=== PATIENT | male | born 1960 | race Caucasian/White ===

== ENCOUNTER 2018-11-28 16:52 | Inpatient (IN) | payer BC ==
[~2018-11-28] VITALS: Ht 185.4 cm; Wt 99.8 kg
--- NOTE | 2018-11-28 17:00 | NUR ---
PT BIB SELF C/O LEFT FACE AND ARM NUMBNESS, LAST WELL KNOWN 1630. PT "HAVE A WEIRD FEELING THEN SUDDEN NUMBNESS ON THE LEFT ARM AROUND 4PM" PT IS AAOX4, NOT IN RESPIRATORY DISTRESS, V/S STABLE, HOOKED TO MONITOR, KEPT RESTED AND COMFORTABLE, WILL CONTINUE TO MONITOR.
--- NOTE | 2018-11-28 17:00 | NUR ---
SEEN AND EXAMINED BY DR. YEBOAH.
--- NOTE | 2018-11-28 17:03 | NUR ---
CODE STROKE CALLED
--- NOTE | 2018-11-28 17:05 | NUR ---
IV LINE ESTABLISHED. LABS DRAWNED AND SENT TO LAB.
--- NOTE | 2018-11-28 17:06 | NUR ---
EKG DONE STROKE TEAM AT BEDSIDE.
--- NOTE | 2018-11-28 17:08 | NUR ---
PT WHEELED TO CT SCAN VIA ACLS PROTOCOL.
[2018-11-28 17:15] LABS: BASOPHILS # (AUTO) 0.1 /CMM (0.0-0.2); BASOPHILS % (AUTO) 0.8 % (0.0-2.0); EOSINOPHILS % (AUTO) 4.9 % (0.0-6.0); HEMATOCRIT 46 % (39-51); HEMOGLOBIN 15.6 g/dL (13.5-17.5); LYMPHOCYTES # (AUTO) 2.2 /CMM (0.8-4.8); LYMPHOCYTES % (AUTO) 17.8 % (20.0-44.0); MEAN CORPUSCULAR HGB CONC 34 g/dl (31.0-36.0); MEAN CORPUSCULAR VOLUME 90 fL (80-96); MONOCYTES # (AUTO) 0.8 /CMM (0.1-1.30); MONOCYTES % (AUTO) 6.7 % (2.0-12.0); NEUTROPHILS # (AUTO) 8.6 /CMM (1.8-8.9); NEUTROPHILS % (AUTO) 69.8 % (43.0-81.0); PLATELET COUNT (AUTO) 323 /CMM (150-450); RED BLOOD CELL COUNT(AUTO) 5.15 MIL/uL (4.5-6.0); WHITE BLOOD COUNT (AUTO) 12.3 K/uL (4.3-11.0)
--- NOTE | 2018-11-28 17:15 | NUR ---
CALLED TELESTROKE, SPOKE WITH SRINIVAS, PRESENTED PT, AWAITING CALL BACK FROM
--- NOTE | 2018-11-28 17:18 | NUR ---
PT IS BACK FROM THE CT SCAN.
--- NOTE | 2018-11-28 17:22 | NUR ---
URINE SPECIMEN COLLECTED AND SENT TO LAB.
[2018-11-28] MEDS ORDERED: IOHEXOL-350 100 ML VIAL IV ONE (17:32)
[2018-11-28] MEDS ORDERED: CT SWABBABLE VALVE TRANS SET 1 EA INFUS.SET MC ONE (17:32)
[2018-11-28] MEDS ORDERED: IV NS 0.9% 250 ML IV ONE (17:32)
--- NOTE | 2018-11-28 17:32 | NUR ---
PT IS WHEELED BACK TO CT SCAN FOR CTA.
[2018-11-28 17:38] LABS: CALCIUM, SERUM 9.7 mg/dL (8.5-10.1); CARBON DIOXIDE 28 mmol/L (21-32); CHLORIDE 103 mmol/L (98-107); CREATININE 0.9 mg/dL (0.6-1.3); GLUCOSE 119 mg/dL (74-106); SODIUM SERUM 137 mmol/L (136-145); UREA NITROGEN, BLOOD 20 mg/dL (7-18)
[2018-11-28 17:39] LABS: CHOLESTEROL 137 mg/dL (<200); HDL CHOLESTEROL 38 mg/dL (40-60); LDL 82 mg/dL (0-99); TRIGLYCERIDES 107 mg/dL (30-150)
--- NOTE | 2018-11-28 18:42 | NUR ---
CALLED NURSING SUP. FOR TELE BED
--- NOTE | 2018-11-28 19:04 | NUR ---
CARINA SMITH, NADIYA MARY NP ASSOCIATE DENTIST
--- NOTE | 2018-11-28 19:10 | NUR ---
REPORT GIVEN TO SHALOM ELLIOTT FOR LAUREL.
[2018-11-28] MEDS ORDERED: CARV3.12 PO (19:21)
[2018-11-28] MEDS ORDERED: ASPI-1169 PO (19:21)
[2018-11-28] MEDS ORDERED: LISI5TAB45 PO (19:21)
[2018-11-28] MEDS ORDERED: ATOR40TA PO (19:21)
[2018-11-28] MEDS ORDERED: ASPIRIN 81 MG TAB.CHEW ONE (19:27)
--- NOTE | 2018-11-28 19:29 | NUR ---
PT MEDICATED ORDERED.
[2018-11-28] MEDS ORDERED: ASPIRIN 81 MG TAB.CHEW PO ONE (19:30)
--- NOTE | 2018-11-28 19:38 | NUR ---
FAMILY IS AT THE BEDSIDE. PT APPEARS TO BE RESTING COMFORTABLY WITH NO S/S OF PAIN OR DISTRESS.
--- NOTE | 2018-11-28 20:06 | NUR ---
PT IS GOING TO 115-1, TELE. ADMITTED BY Robinson MARY SPORTS ADMINISTRATOR
--- NOTE | 2018-11-28 20:30 | NUR ---
CALLING REPORT TO SHALOM GRANDE - TELE NURSE.
--- NOTE | 2018-11-28 20:36 | NUR ---
PT TRANSPORTED TO TELE VIA GURNEY.
--- NOTE | 2018-11-28 20:50 | NUR ---
RN NOTES RECEIVED PATIENT'S REPORT FROM EARL ALMONTE RN AND RECEIVED PATIENT ON [place] [place]. PATIENT IS A/A/OX4. NO COMPLAINT OF SON, NO CHEST PAIN AT THIS TIME. PATIENT IS PLACED ON LAUNCH MANAGER WITH SR. PATIENT IS ON RA WITH SPO2 OF 98% WITH NON- LABORED BREATHING. SKIN ASSESSMENT HAS BEEN DONE AND PICTURES ARE TAKEN AND PLACED IN THE CHART. PATIENT IS AMBULATORY AND BRP. IV LINE ON RIGHT AC 18G IS PATIENT AND INTACT W/O IV FLUIDS. NIHSS ASSESSMENT HAS BEEN DONE. WILL CONTINUE TO MONITOR PATIENT CLOSELY.
[2018-11-28] MEDS ORDERED: HYDROCODONE/APAP 5/325MG 1 EACH TABLET PO PRN (21:00)
[2018-11-28] MEDS ORDERED: ONDANSETRON HCL/PF 4 MG/2 ML VIAL IVP PRN (21:00)
[2018-11-28] MEDS ORDERED: MAGNESIUM HYDROXIDE 30 ML UDC PO PRN (21:00)
[2018-11-28] MEDS ORDERED: ACETAMINOPHEN 325 MG TABLET PO PRN (21:00)
[2018-11-28] MEDS ORDERED: ZOLPIDEM TARTRATE 5 MG TABLET PO PRN (21:00)
[2018-11-28 21:14] LABS: POTASSIUM 3.8 mmol/L (3.5-5.1)
[2018-11-28 21:26] LABS: ALBUMIN 4.1 g/dL (3.4-5.0); BILIRUBIN,TOTAL 0.5 mg/dL (0.2-1.0); TOTAL PROTEIN, SERUM 7.2 g/dL (6.4-8.2)
[2018-11-28 21:29] LABS: THYROID STIMULATING HORMONE 1.613 uIU/mL (0.358-3.74)
[2018-11-28 21:52] VITALS: BP_SYST 118; BP_SYST 151; BP_DIAS 71; BP_DIAS 88
[2018-11-28] MEDS ORDERED: ATORVASTATIN 10 MG TABLET PO SCH (22:00)
[2018-11-29] VITALS: BP 110/61
[2018-11-29] MEDS: BLOOD SUGAR DIAGNOSTIC 1 EACH STRIP IN SCH ×4 (01:07→18:05)
[2018-11-29 04:00] VITALS: BP 98/64
[2018-11-29 06:54] LABS: BASOPHILS # (AUTO) 0.1 /CMM (0.0-0.2); EOSINOPHILS % (AUTO) 5.5 % (0.0-6.0); HEMATOCRIT 43 % (39-51); HEMOGLOBIN 14.7 g/dL (13.5-17.5); LYMPHOCYTES % (AUTO) 20.9 % (20.0-44.0); MEAN CORPUSCULAR HGB CONC 34 g/dl (31.0-36.0); MEAN CORPUSCULAR VOLUME 90 fL (80-96); MONOCYTES # (AUTO) 0.8 /CMM (0.1-1.30); MONOCYTES % (AUTO) 7.9 % (2.0-12.0); NEUTROPHILS # (AUTO) 6.2 /CMM (1.8-8.9); NEUTROPHILS % (AUTO) 64.7 % (43.0-81.0); PLATELET COUNT (AUTO) 262 /CMM (150-450); RED BLOOD CELL COUNT(AUTO) 4.79 MIL/uL (4.5-6.0); WHITE BLOOD COUNT (AUTO) 9.6 K/uL (4.3-11.0)
--- NOTE | 2018-11-29 07:00 | NUR ---
ANIMAL BREEDER OPENING NOTES RECEIVED PT LYING ON BED.ALERT/ORIENTED X4.ON TELE HR IS 74 WITH SR.ON ROOM AIR,TOLERATING WELL.NO SOB AND ACUTE DISTRESS NOTED.IV LINE IS ON RIGHT AC G18,SITE IS CLEAN,DRY AND INTACT.NO INFILTRATION NOTED.SAFETY IS MAINTAINED AT ALL TIMES.BED IS IN LOW POSITION AND LOCKED.CALL LIGHT IS WITHIN REACH.WILL CONTINUE TO MONITOR THE PT CLOSELY AND WILL FOLLOW UP THE MRI PROCEDURE.
[2018-11-29 07:01] LABS: CALCIUM, SERUM 8.7 mg/dL (8.5-10.1); CREATININE 0.9 mg/dL (0.6-1.3); MAGNESIUM 1.9 mg/dL (1.8-2.4); PHOSPHORUS 4.2 mg/dL (2.5-4.9); POTASSIUM 3.8 mmol/L (3.5-5.1)
[2018-11-29 07:38] LABS: APPEARANCE,URINE CLEAR (CLEAR); BILIRUBIN,URINE NEGATIVE (NEGATIVE); BLOOD, URINE TRACE Ery/uL (NEGATIVE); COLOR,URINE YELLOW (YELLOW); KETONES,URINE NEGATIVE (NEGATIVE); LEUKOCYTE ESTERASE ,URINE NEGATIVE (NEGATIVE); NITRITE, URINE NEGATIVE (NEGATIVE); PH,URINE 6.5 (5.0-8.0); PROTEIN,URINE NEGATIVE (NEGATIVE); UGLUCOSE NEGATIVE (NEGATIVE); UROBILINOGEN,URINE 0.2 EU/dL (0.2)
[2018-11-29 07:49] LABS: SQUAMOUS EPITHELIAL CELL,UR Rare /HPF (None Seen)
[2018-11-29 07:50] LABS: BACTERIA,URINE None seen /HPF (None Seen); RBC,URINE 0-2 /HPF (0-2); WBC,URINE 0-2 /HPF (0-3)
[2018-11-29 08:00] VITALS: BP 116/71
[2018-11-29] MEDS: CARVEDILOL 3.125 MG TABLET PO SCH (08:30)
[2018-11-29] MEDS: ASPIRIN 81 MG TAB.CHEW PO SCH (08:30)
--- NOTE | 2018-11-29 11:27 | NUR ---
TEXTED DR. SESAY FOR MRI APPROVAL.
--- NOTE | 2018-11-29 11:31 | NUR ---
MRI ON HOLD FOR NOW, DR. SESAY WILL LET US KNOW.
--- NOTE | 2018-11-29 11:45 | NUR ---
MAIL SORTER NOTES CREW CHIEF AYALA PHILLIP SAID ITS OK TO HAVE MRI WITH SURGICAL CLIP ON THE CHEST AFTER VERIFIED WITH ,BROOM BUILDER.ELISA MRI MADE AWARE AND PER HIM ORDERED TO HOLD PT FOR A WHILE FOR MRI AND WILL LET THE STAFF KNOW WHEN THE PROCEDURE WILL TAKES PLACE.
[2018-11-29 12:00] VITALS: BP 116/79
[2018-11-29 16:00] VITALS: BP 113/77
--- NOTE | 2018-11-29 19:00 | NUR ---
SHUTTLE FILLER CLOSING NOTES PT IS LYING ON BED.NO S/S STROKE NOTED.NO SIGNIFICANT CHANGES NOTED IN THE SHIFT.ENDORSED TO COLUMNIST RN FOR LAUREL AND FOLLOW UP WITH MRI IN AM.
[2018-11-29 20:00] VITALS: BP 123/71
[2018-11-29] MEDS: ATORVASTATIN 10 MG TABLET PO SCH (21:04)
[2018-11-29] MEDS: LISINOPRIL (5MG) 5 MG TABLET PO SCH (21:05)
[2018-11-30] VITALS (8 sets, daily range): BP systolic 93–124; BP diastolic 59–79
[2018-11-30] MEDS: BLOOD SUGAR DIAGNOSTIC 1 EACH STRIP IN SCH ×4 (01:00→17:04)
--- NOTE | 2018-11-30 06:55 | NUR ---
SCHOOL OCCUPATIONAL THERAPIST CLOSING NOTES, PT IS LYING ON BED, SLEEPING AT THIS TIME BUT EASILY AROUSABLE TO VERBAL STIMULI, NO SIGNIFICANT CHANGE IN CONDITION THROUGHOUT THE NIGHT, WILL ENDORSE CONTINUITY OF CARE TO ONCOMING NURSE, HE WILL HAVE MRI THIS AM, PATIENT AWARE AND VERBALIZED UNDERSTANDING.
--- NOTE | 2018-11-30 07:28 | NUR ---
MS/RN Patient received Patient received from film processing shift supervisor. A/O X4, NSR on monitor, denies any pain or discomfort at this time. Safety measures in place, call light within reach, will continue to monitor and ensure safety.
[2018-11-30] MEDS: ASPIRIN 81 MG TAB.CHEW PO SCH (08:18)
[2018-11-30] MEDS: CARVEDILOL 3.125 MG TABLET PO SCH (08:19)
--- NOTE | 2018-11-30 10:30 | NUR ---
MS/RN S/B Kurt Betts REINSURANCE ANALYST Seen by REINSURANCE ANALYST - await MRI.
--- NOTE | 2018-11-30 11:11 | NUR ---
MS/RN S/B Dr Bradford Seen by Dr rBadford - discharge per IM.
--- NOTE | 2018-11-30 11:47 | NUR ---
MS/RN MRI follow up Call placed to MRI to follow up on schedule time, per windows server support technician, MRI on hold at this time until approval given by Dr Rahman.
--- NOTE | 2018-11-30 13:07 | NUR ---
MS/RN S/B Neurology Seen by neuro DIAMOND ASSORTER, informed as to the status of MRI. Stated that she would follow up with Dr Yepez regarding any different testing that could be ordered instead of the MRI.
--- NOTE | 2018-11-30 17:05 | NUR ---
MS/RN Blood sugars Patient refusing for blood sugars to be checked, stating "I'm not diabetic", MD aware.
--- NOTE | 2018-11-30 18:13 | NUR ---
MS/RN End note Patient remains in stable condition, no new needs at this time. Continues to await for MRI, stating that if this is not done by tomorrow morning, patient wishes to be discharged to home aas nothing is being done here in the hospital. Will endorse to tension machine operator.
--- NOTE | 2018-11-30 19:50 | NUR ---
RN MS NOTES, PATIENT LYING ON BED, AWAKE A/O X4, BREATHING EVEN AND UNLABORED, NO SOB/ACUTE DISTRESS NOTED AT THIS TIME, DENIES PAIN OR DISCOMFORT, RIGHT AC IV ACEES PATENT AND INTACT, ALL NEEDS PROVIDED, CALL LIGHT W/I REACH, WILL CONTINUE TO MONITOR CLOSELY.
[2018-11-30] MEDS: ALPRAZOLAM 1 MG TABLET PO PRN (21:24)
[2018-11-30] MEDS: ATORVASTATIN 10 MG TABLET PO SCH (23:35)
[2018-11-30] MEDS: LISINOPRIL (5MG) 5 MG TABLET PO SCH (23:36)
[2018-12-01] MEDS: BLOOD SUGAR DIAGNOSTIC 1 EACH STRIP IN SCH ×4 (00:26→17:59)
[2018-12-01 04:00] VITALS: BP 94/62
--- NOTE | 2018-12-01 06:55 | NUR ---
PROJECT CONSTRUCTION ASSISTANT MANAGER CLOSING NOTES, PT IS ON BED AWAKE, A/O X4, BREATHING EVEN AND UNLABORED, NO SOB/ACUTE DISTRESS NOTES, ONE EPISODE OF ANXIETY DURING THE NIGHT AND XANAX ADMINISTERED ORDERED, ALL NEEDS PROVIDED STILL WAITING FOR MRI, BUT STATES HE WANTS TO GO HOME TODAY EVEN AND MRI IS NOT DONE, WILL ENDORSE CONTINUITY OF CARE TO ONCOMING NURSE.
--- NOTE | 2018-12-01 07:40 | NUR ---
MS/RN OPENING NOTE PATIENT IN BED IN STABLE CONDITION. A/O X 4. NO SIGNS OF ACUTE DISTRESS. NO COMPLAIN OF PAIN OR DISCOMFORT. ALL NEEDS ATTENDED TO. CALL LIGHT WITHIN REACH. WILL CONTINUE TO MONITOR TO ENSURE SAFETY.
[2018-12-01 08:00] VITALS: BP 116/74
[2018-12-01] MEDS: ASPIRIN 81 MG TAB.CHEW PO SCH (08:11)
[2018-12-01] MEDS: CARVEDILOL 3.125 MG TABLET PO SCH (08:12)
[2018-12-01 08:16] VITALS: BP 116/74
--- NOTE | 2018-12-01 09:30 | NUR ---
MS/RN SPOKE WITH MAGNO FROM RADIOLOGY REGARDING PATIENT'S MRI STATUS AND MADE AWARE THE ORDER IS FROM 11/28/18 PER MAGNO HE IS STILL AWAITING FOR DR SESAY'S APPROVAL. GEOVANI GUZMAN FOR NEURO DR. RICHARDSON NOTIFIED.
--- NOTE | 2018-12-01 11:32 | NUR ---
MS/RN SPOKE WITH GEOVANI GUZMAN AND NOTIFIED PER LAND SURVEYING MANAGER IF OKAY TO DO BILATERAL EYE ORBIT XRAY SECONDARY TO PATIENT WORKS WITH METAL MACHINERY. PER GEOVANI GUZMAN OKAY FOR BILATERAL ORBIT XRAY. ORDERS NOTED AND CARRIED OUT. PATIENT NOTIFIED.
[2018-12-01 16:00] VITALS: BP 107/66
--- NOTE | 2018-12-01 18:27 | NUR ---
MS/RN CLOSING NOTES PATIENT IN BED IN STABLE CONDITION. A/O X 4. NO SIGNS OF ACUTE DISTRESS. NO COMPLAIN OF PAIN OR DISCOMFORT. PENDING EEG RESULTS. ALL NEEDS ATTENDED TO. CALL LIGHT WITHIN REACH. WILL ENDORSE TO NEXT SHIFT FOR CONTINUITY OF CARE.
--- NOTE | 2018-12-01 19:40 | NUR ---
MANAGER VALIDATION INITIAL NOTES, PATIENT IS ON BED AWAKE, A/O X4, BREATHING EVEN AND UNLABORED, NO SOB/ACUTE DISTRESS NOTED AT THIS TIME, RIGHT AC IV ACCESS PATENT AND INTACT, ALL NEEDS PROVIDED, CALL LIGHT W/I REACH, WILL CONTINUE TO MONITOR CLOSELY.
[2018-12-01 20:00] VITALS: BP 120/77
[2018-12-01] MEDS: ATORVASTATIN 10 MG TABLET PO SCH (21:03)
[2018-12-01] MEDS: LISINOPRIL (5MG) 5 MG TABLET PO SCH (21:04)
[2018-12-01] MEDS: ALPRAZOLAM 1 MG TABLET PO PRN (22:13)
[2018-12-02 04:00] VITALS: BP_SYST 104; BP_DIAS 70; BP_DIAS 90
[2018-12-02] MEDS: BLOOD SUGAR DIAGNOSTIC 1 EACH STRIP IN SCH ×2 (06:00)
--- NOTE | 2018-12-02 06:50 | NUR ---
RN CLOSING NOTES, PATIENT SLEEPING AT THIS TIME, BREATHING EVEN AND UNLABORED, NO SOB/ACUTE DISTRESS NOTED AT THIS TIME, ALL NEEDS PROVIDED REFUSED 0000 AND 0600 BLOOD SUGAR CHECK, STATED THAT HES NOT DIABETIC AND DOES NOT WANT BLOOD SUGAR CHECK, EXPLAINED RISKS AND BENEFITS 3X, STILL REFUSED, CALL LIGHT W/I REACH, WILL ENDORSE CONTINUITY OF CARE TO ONCOMING NURSE.
[2018-12-02 07:28] LABS: BASOPHILS # (AUTO) 0.1 /CMM (0.0-0.2); BASOPHILS % (AUTO) 0.9 % (0.0-2.0); EOSINOPHILS % (AUTO) 5.3 % (0.0-6.0); HEMATOCRIT 45 % (39-51); HEMOGLOBIN 15.5 g/dL (13.5-17.5); LYMPHOCYTES # (AUTO) 1.8 /CMM (0.8-4.8); LYMPHOCYTES % (AUTO) 16.6 % (20.0-44.0); MEAN CORPUSCULAR HGB CONC 34 g/dl (31.0-36.0); MEAN CORPUSCULAR VOLUME 88 fL (80-96); MONOCYTES % (AUTO) 9.3 % (2.0-12.0); NEUTROPHILS # (AUTO) 7.4 /CMM (1.8-8.9); NEUTROPHILS % (AUTO) 67.9 % (43.0-81.0); PLATELET COUNT (AUTO) 241 /CMM (150-450); RED BLOOD CELL COUNT(AUTO) 5.11 MIL/uL (4.5-6.0); WHITE BLOOD COUNT (AUTO) 10.9 K/uL (4.3-11.0)
--- NOTE | 2018-12-02 07:30 | NUR ---
RN MS NOTES PT IN BED, AWAKE, ALERT AND ORIENTED, NO COMPLAINT OF PAIN OR ANY DISCOMFORT, RESPIRATIONS NORMAL, CALL LIGHT WITHIN REACH, STATES HE FEELS BETTER, NEEDS ATTENDED.
[2018-12-02 07:36] LABS: CALCIUM, SERUM 8.6 mg/dL (8.5-10.1); CREATININE 0.9 mg/dL (0.6-1.3)
[2018-12-02 08:00] VITALS: BP 119/67
[2018-12-02] MEDS: ASPIRIN 81 MG TAB.CHEW PO SCH (08:38)
[2018-12-02 08:39] VITALS: BP 119/67
[2018-12-02] MEDS: CARVEDILOL 3.125 MG TABLET PO SCH (08:39)
--- NOTE | 2018-12-02 11:38 | NUR ---
RN MS NOTES PT IN BED, AWAKE, ALERT AND ORIENTED, NO COMPLAINT OF PAIN, RESPIRATIONS NORMAL, STROKE ASSESSMENT DONE, NO DEFICITS NOTED, PT AMBULATES WITH STEADY GAIT, NO COMPLAINT OF FACIAL OR ARM NUMBNESS, SEEN BY DR. LANIER, DISCHARGE AND MEDICATION INSTRUCTIONS PROVIDED TO PT, VERBALIZED UNDERSTANDING, SKIN CHECK DONE, BELONGINGS ACCOUNTED FOR, PT EDUCATION REGARDING S/S OF STROKE AND STROKE PREVENTION PROVIDED TO PT AND FAMILY, VERBALIZED UNDERSTANDING, ASSISTED TO HOSPITAL LOBBY BY SALES SUPPORT SPECIALIST VIA WHEELCHAIR, LEFT WITH FAMILY IN STABLE CONDITION.
== END 2018-12-02 11:35 | disposition home health service (06) | DRG 69 ==
LOC: ER 16:53 → TELE1 20:08 → MEDSG1 11-30 15:24
PROVIDERS: ADMIT Nurse Practitioner Acute Care; ATTEND Family Medicine
DX: G45.9 Transient cerebral ischemic attack, unspecified (principal); N17.0 Acute kidney failure with tubular necrosis; I11.0 Hypertensive heart disease with heart failure; I50.9 Heart failure, unspecified; I25.10 Atherosclerotic heart disease of native coronary artery without angina pectoris; E78.5 Hyperlipidemia, unspecified; Z95.1 Presence of aortocoronary bypass graft; E66.9 Obesity, unspecified; Z68.29 Body mass index [BMI] 29.0-29.9, adult; K02.9 Dental caries, unspecified; I25.2 Old myocardial infarction; Z79.82 Long term (current) use of aspirin; R29.700 NIHSS score 0
CPT/HCPCS: 36415; 70200-TC; 70450-TC; 70496-TC; 70498-TC; 70551-TC; 71045-TC; 80048-TC; 80053-TC; 80061-TC; 80305; 81000-TC; 82962-TC; 83735-TC; 83880; 84100-TC; 84443-TC; 84484-TC; 85025-TC; 85652-TC; 85730-TC; 87081-TC; 93307-TC; 93880-TC; 95819-TC; G0378; J7050; Q9967